=== PATIENT | female | born 1995 | race Caucasian/White ===

== ENCOUNTER → 2018-08-17 | Outpatient (CLI) | payer OTHER | END | disposition home or self-care (01) | LOC: LAB SHORT 16:03 → LAB 16:03 | DX: K51.90 Ulcerative colitis, unspecified, without complications (principal) | CPT/HCPCS: 83993 ==

== ENCOUNTER → 2018-09-08 | Outpatient (CLI) | payer OTHER ==
[2018-09-08 21:03] LABS: Adenovirus F 40/41 Not Detected (NOT DETECT); Astrovirus Not Detected (NOT DETECT); Campylobacter Sp Not Detected (NOT DETECT); Cryptosporidium Not Detected (NOT DETECT); Cyclospora Cayetanensis Not Detected (NOT DETECT); E. Coli O157 Not Detected (NOT DETECT); Entamoeba Histolytica Not Detected (NOT DETECT); Enteroaggregative E. coli-EAEC Not Detected (NOT DETECT); Enteropathogenic E. coli-EPEC Not Detected (NOT DETECT); Enterotoxigenic E. coli-ETEC Not Detected (NOT DETECT); Giardia Lamblia Not Detected (NOT DETECT); Norovirus GI/GII Not Detected (NOT DETECT); Plesiomonas Shigelloides Not Detected (NOT DETECT); Rotavirus A Not Detected (NOT DETECT); Salmonella Sp Not Detected (NOT DETECT); Sapovirus Not Detected (NOT DETECT); Shiga Toxin-prod E. coli-STEC Not Detected (NOT DETECT); Shigella/Enteroin E. coli-EIEC Not Detected (NOT DETECT); Vibrio Cholerae Not Detected (NOT DETECT); Vibrio Sp Not Detected (NOT DETECT); Yersinia Enterocolitica Not Detected (NOT DETECT)
== END | disposition home or self-care (01) ==
LOC: LAB 16:02 → LAB SHORT 16:02
PROVIDERS: Student in an Organized Health Care Education/Training Program
DX: K51.90 Ulcerative colitis, unspecified, without complications (principal); R19.7 Diarrhea, unspecified
CPT/HCPCS: 87507

== ENCOUNTER 2018-10-04 06:32 | Day surgery (SDC) | payer OTHER ==
[~2018-10-04] VITALS: Ht 172.7 cm; Wt 113.1 kg
[~2018-10-04 06:32] MED LIST: Lialda1.2 GM PO; Promethazine12.5 M1 PO; Rowasa 4 G4 GM/60 ML PR; VALA500 PO
--- NOTE | 2018-10-04 08:04 | NUR ---
10/04/18 0804 Shahrzad Gamboa FIRST IV START UNSUCCESSFUL IN THE RIGHT WRIST. PT TOLERATED IV ATTEMPT WELL.
== END 2018-10-04 09:25 | disposition home or self-care (01) ==
LOC: ORSCSDS 06:32
PROVIDERS: Student in an Organized Health Care Education/Training Program
PROC: 0DBK8ZX Excision of Ascending Colon, Via Natural or Artificial Opening Endoscopic, Diagnostic (ICD-10-PCS; principal; 2018-10-04 08:00)
PROC: 0DBH8ZX Excision of Cecum, Via Natural or Artificial Opening Endoscopic, Diagnostic (ICD-10-PCS; principal; 2018-10-04 08:00)
PROC: 0DBM8ZX Excision of Descending Colon, Via Natural or Artificial Opening Endoscopic, Diagnostic (ICD-10-PCS; principal; 2018-10-04 08:00)
PROC: 0DBN8ZX Excision of Sigmoid Colon, Via Natural or Artificial Opening Endoscopic, Diagnostic (ICD-10-PCS; principal; 2018-10-04 08:00)
PROC: 0DBP8ZX Excision of Rectum, Via Natural or Artificial Opening Endoscopic, Diagnostic (ICD-10-PCS; principal; 2018-10-04 08:00)
PROC: 0DBL8ZX Excision of Transverse Colon, Via Natural or Artificial Opening Endoscopic, Diagnostic (ICD-10-PCS; principal; 2018-10-04 08:00)
PROC: 0DB68ZX Excision of Stomach, Via Natural or Artificial Opening Endoscopic, Diagnostic (ICD-10-PCS; 2018-10-04 08:00)
PROC: 0DB88ZX Excision of Small Intestine, Via Natural or Artificial Opening Endoscopic, Diagnostic (ICD-10-PCS; 2018-10-04 08:00)
DX: K51.90 Ulcerative colitis, unspecified, without complications (principal); K29.70 Gastritis, unspecified, without bleeding; K29.80 Duodenitis without bleeding; R19.7 Diarrhea, unspecified; R14.0 Abdominal distension (gaseous); E78.5 Hyperlipidemia, unspecified; R11.2 Nausea with vomiting, unspecified; Z79.899 Other long term (current) drug therapy
CPT/HCPCS: 88305; 88342; J0330; J0461; J2405; J2704; J7120

== ENCOUNTER → 2018-10-21 | Outpatient (CLI) | payer OTHER ==
[2018-10-21 17:23] LABS: Adenovirus F 40/41 Not Detected (NOT DETECT); Astrovirus Not Detected (NOT DETECT); Campylobacter Sp Not Detected (NOT DETECT); Cryptosporidium Not Detected (NOT DETECT); Cyclospora Cayetanensis Not Detected (NOT DETECT); E. Coli O157 Not Detected (NOT DETECT); Entamoeba Histolytica Not Detected (NOT DETECT); Enteroaggregative E. coli-EAEC Not Detected (NOT DETECT); Enteropathogenic E. coli-EPEC Not Detected (NOT DETECT); Enterotoxigenic E. coli-ETEC Not Detected (NOT DETECT); Giardia Lamblia Not Detected (NOT DETECT); Norovirus GI/GII Not Detected (NOT DETECT); Plesiomonas Shigelloides Not Detected (NOT DETECT); Rotavirus A Not Detected (NOT DETECT); Salmonella Sp Not Detected (NOT DETECT); Sapovirus Not Detected (NOT DETECT); Shiga Toxin-prod E. coli-STEC Not Detected (NOT DETECT); Shigella/Enteroin E. coli-EIEC Not Detected (NOT DETECT); Vibrio Cholerae Not Detected (NOT DETECT); Vibrio Sp Not Detected (NOT DETECT); Yersinia Enterocolitica Not Detected (NOT DETECT)
== END | disposition home or self-care (01) ==
LOC: LAB 13:28 → LAB SHORT 13:28
PROVIDERS: Student in an Organized Health Care Education/Training Program
DX: K51.90 Ulcerative colitis, unspecified, without complications (principal)
CPT/HCPCS: 83993; 87324; 87507

== ENCOUNTER → 2020-11-08 | Outpatient (CLI) | payer OTHER ==
[2020-11-08 20:08] LABS: Percent Saturation 14.5 % (15.0-50.0)
== END | disposition home or self-care (01) ==
LOC: LAB 18:28 → LAB SHORT 18:28
PROVIDERS: Internal Medicine Hematology & Oncology
DX: D50.0 Iron deficiency anemia secondary to blood loss (chronic) (principal)
CPT/HCPCS: 82728; 83540; 83550

== ENCOUNTER → 2021-10-01 | Outpatient (CLI) | payer OTHER ==
[2021-10-01 19:27] LABS: Percent Saturation 5.5 % (15.0-50.0)
== END ==
LOC: LAB SHORT 17:05
PROVIDERS: Internal Medicine Hematology & Oncology
DX: D50.0 Iron deficiency anemia secondary to blood loss (chronic) (principal); E53.8 Deficiency of other specified B group vitamins
CPT/HCPCS: 82607; 82728; 82746; 83540; 83550

== ENCOUNTER → 2021-11-18 | Outpatient (CLI) | payer OTHER ==
[2021-11-18 13:39] LABS: Percent Saturation 14.4 % (15.0-50.0)
== END | disposition home or self-care (01) ==
LOC: LAB 09:47 → LAB SHORT 09:47
PROVIDERS: Internal Medicine Hematology & Oncology
DX: D50.9 Iron deficiency anemia, unspecified (principal)
CPT/HCPCS: 82728; 83540; 83550

== ENCOUNTER 2022-06-24 09:19 | Day surgery (SDC) | payer OTHER ==
[~2022-06-24] VITALS: Ht 172.7 cm; Wt 114.5 kg
[2022-06-24] MEDS ORDERED: ONDA4ODT (09:52)
[2022-06-24] MEDS ORDERED: FAMO20 (09:52)
[2022-06-24] MEDS ORDERED: HUMIRA (09:52)
== END 2022-06-24 12:10 | disposition home or self-care (01) ==
LOC: ORSCSDS 09:19
PROVIDERS: Student in an Organized Health Care Education/Training Program
PROC: 0DBH8ZX Excision of Cecum, Via Natural or Artificial Opening Endoscopic, Diagnostic (ICD-10-PCS; principal; 2022-06-24 10:45)
PROC: 0DBK8ZX Excision of Ascending Colon, Via Natural or Artificial Opening Endoscopic, Diagnostic (ICD-10-PCS; principal; 2022-06-24 10:45)
PROC: 0DBN8ZX Excision of Sigmoid Colon, Via Natural or Artificial Opening Endoscopic, Diagnostic (ICD-10-PCS; principal; 2022-06-24 10:45)
PROC: 0DBM8ZX Excision of Descending Colon, Via Natural or Artificial Opening Endoscopic, Diagnostic (ICD-10-PCS; principal; 2022-06-24 10:45)
PROC: 0DBL8ZX Excision of Transverse Colon, Via Natural or Artificial Opening Endoscopic, Diagnostic (ICD-10-PCS; principal; 2022-06-24 10:45)
PROC: 0DBP8ZX Excision of Rectum, Via Natural or Artificial Opening Endoscopic, Diagnostic (ICD-10-PCS; principal; 2022-06-24 10:45)
DX: K51.00 Ulcerative (chronic) pancolitis without complications (principal); Z79.899 Other long term (current) drug therapy
CPT/HCPCS: 88305; J0330; J0461; J2405; J2704; J7120; Q9968

== ENCOUNTER → 2023-01-09 | Outpatient (CLI) | payer OTHER ==
[~2023-01-09] MED LIST changes: +CEPH500 PO; +FAMO20; +HUMIRA; +ONDA4ODT
== END | disposition home or self-care (01) ==
LOC: LAB SHORT 06:30 → LAB 06:30
DX: K51.00 Ulcerative (chronic) pancolitis without complications (principal)
CPT/HCPCS: 83993

== ENCOUNTER 2023-02-16 08:17 | Day surgery (SDC) | payer OTHER ==
[~2023-02-16] VITALS: Ht 172.7 cm; Wt 114.4 kg
[2023-02-16 09:57] VITALS: BP 109/54
== END 2023-02-16 10:16 | disposition home or self-care (01) ==
LOC: ORSCSDS 08:17
PROVIDERS: Internal Medicine Gastroenterology
PROC: 0DBM8ZX Excision of Descending Colon, Via Natural or Artificial Opening Endoscopic, Diagnostic (ICD-10-PCS; principal; 2023-02-16 10:00)
PROC: 0DBN8ZX Excision of Sigmoid Colon, Via Natural or Artificial Opening Endoscopic, Diagnostic (ICD-10-PCS; principal; 2023-02-16 10:00)
PROC: 0DBF8ZX Excision of Right Large Intestine, Via Natural or Artificial Opening Endoscopic, Diagnostic (ICD-10-PCS; principal; 2023-02-16 10:00)
PROC: 0DBP8ZX Excision of Rectum, Via Natural or Artificial Opening Endoscopic, Diagnostic (ICD-10-PCS; principal; 2023-02-16 10:00)
DX: K51.90 Ulcerative colitis, unspecified, without complications (principal); K62.89 Other specified diseases of anus and rectum; Z79.899 Other long term (current) drug therapy
CPT/HCPCS: 88305; 88341; 88342; J2704; J7120

== ENCOUNTER 2023-02-17 16:31 | Emergency (ER) | payer OTHER ==
[~2023-02-17] VITALS: Ht 172.7 cm; Wt 113.4 kg
[2023-02-17 16:42] VITALS: BP 122/88
== END 2023-02-17 19:33 | disposition home or self-care (01) ==
LOC: ER 16:31
DX: L05.01 Pilonidal cyst with abscess (principal)
CPT/HCPCS: 10080; 99282-25

== ENCOUNTER 2023-03-24 02:59 | Day surgery (SDC) | payer OTHER ==
[2023-03-24 10:16] VITALS: BP 141/78
--- NOTE | 2023-03-24 11:57 | NUR ---
FAXED A REQUEST FOR CORRECTED ORDERS TO DR BENDER.
== END 2023-03-24 11:26 | disposition home or self-care (01) ==
LOC: ATC 02:59
DX: K51.00 Ulcerative (chronic) pancolitis without complications (principal)
CPT/HCPCS: 96365; J3380; J7050

== ENCOUNTER 2023-04-07 03:03 | Day surgery (SDC) | payer OTHER ==
[2023-04-07 15:10] VITALS: BP 113/75
[2023-04-07] MEDS ORDERED: ENTYVIO300 M1 IV (16:00)
== END 2023-04-07 16:25 | disposition home or self-care (01) ==
LOC: ATC 03:03
DX: K51.00 Ulcerative (chronic) pancolitis without complications (principal)
CPT/HCPCS: 96365; J3380; J7050

== ENCOUNTER 2023-05-05 02:44 | Day surgery (SDC) | payer OTHER ==
[~2023-05-05 02:44] MED LIST changes: +ENTYVIO300 M1 IV
[2023-05-05 15:30] VITALS: BP 125/70
== END 2023-05-05 14:30 | disposition home or self-care (01) ==
LOC: ATC 02:44
DX: K51.00 Ulcerative (chronic) pancolitis without complications (principal)
CPT/HCPCS: 96374; J3380; J7050